=== PATIENT | female | born 1975 ===

== ENCOUNTER 2017-05-02 08:40 | Inpatient (IN) | payer MEDICAID ==
[2017-05-02 08:41] VITALS: BMI 37.8
--- NOTE | 2017-05-02 08:50 | ED PDOC ---
Arrival/HPI - General Time Seen by Provider: 05/02/17 08:41 Historian: Patient - History of Present Illness Narrative History of Present Illness (Text): 05/02/17 08:42 A 42 year old female, whose past medical history includes schizophrenia, arrives to the emergency department for psych admission. Patient was transferred from [facility] for psych admission prior to arriving. Patient denies of any complaints at this time. Time/Duration: Prior to Arrival Symptom Course: Unchanged Activities at Onset: Rest, Light Context: Other (transferred from [facility]) Past Medical History - Provider Review Nursing Documentation Reviewed: Yes - Infectious Disease Hx of Infectious Diseases: None - Tetanus Immunization Tetanus Immunization: Unknown - Cardiac Hx Cardiac Disorders: No Hx Angina: No Hx Cardiac Arrhythmia: No Hx Circulatory Problems: No Hx Congestive Heart Failure: No Hx Heart Murmur: No Hx Heart Transplant: No Hx Hypertension: Yes Hx Internal Defibrillator: No Hx Mitral Valve Prolapse: No Hx Pacemaker: No - Pulmonary Hx Respiratory Disorders: No - Neurological Hx Neurological Disorder: No - HEENT Hx HEENT Disorder: No - Renal Hx Renal Disorder: No - Endocrine/Metabolic Hx Endocrine Disorders: No - Hematological/Oncological Hx Blood Disorders: No - Integumentary Hx Dermatological Disorder: No - Musculoskeletal/Rheumatological Hx Musculoskeletal Disorders: No Hx Falls: No - Gastrointestinal Hx Gastrointestinal Disorders: No - Genitourinary/Gynecological Hx Genitourinary Disorders: No Hx Reproductive Disorders: No - Psychiatric Hx Psychophysiologic Disorder: No Hx Substance Use: No - Past Surgical History Past Surgical History: Non-Contributing - Surgical History Hx Cardiac Catheterization: No Hx Coronary Stent: No - Suicidal Assessment Feels Threatened In Home Enviroment: No Family/Social History - Physician Review Nursing Documentation Reviewed: Yes Family/Social History: No Known Family HX Smoking Status: Never Smoked Hx Alcohol Use: No Hx Substance Use: No Hx Substance Use Treatment: No Allergies/Home Meds Allergies/Adverse Reactions: Allergies aripiprazole [From Abilify] Allergy (Verified 05/02/17 08:52) ANAPHYLAXIS clozapine [From Clozaril] Allergy (Verified 05/02/17 08:52) ANAPHYLAXIS quetiapine [From Seroquel] Allergy (Verified 05/02/17 08:45) ANAPHYLAXIS Penicillins Adverse Reaction (Verified 08/17/16 13:35) FEVER Home Medications: Home Meds Medication Instructions Recorded Confirmed Benztropine [Benztropine Mesylate] 1 mg PO BID 08/17/16 08/17/16 Haloperidol [Haldol] 5 mg PO BID 08/17/16 08/17/16 OLANZapine [ZyPREXA] 10 mg PO HS 08/17/16 08/17/16 Olanzapine [Zyprexa] 5 mg PO DAILY 08/17/16 08/17/16 amLODIPine [Norvasc] 5 mg PO DAILY 08/17/16 08/17/16 traZODone [trazODONE HYDROCHLORIDE] 50 mg PO HS 08/17/16 08/17/16 Review of Systems - Physician Review All systems were reviewed & negative as marked: Yes - Review of Systems Constitutional: Normal Psychiatric: absent: Suicidal Ideation, Other (homicidal ideation) Physical Exam Vital Signs Reviewed: Yes Vital Signs Temp Pulse Resp BP Pulse Ox 05/02/17 08:44 98.8 F 96 H 18 147/79 95 Temperature: Afebrile Blood Pressure: Normal Pulse: Regular Respiratory Rate: Normal Appearance: Positive for: Well-Appearing Pain Distress: None Mental Status: Positive for: Alert and Oriented X 3 - Systems Exam Head: Present: Atraumatic, Normocephalic Pupils: Present: PERRL Extroacular Muscles: Present: EOMI Conjunctiva: Present: Normal Mouth: Present: Moist Mucous Membranes Neck: Present: Normal Range of Motion Respiratory/Chest: Present: Clear to Auscultation, Good Air Exchange. No: Respiratory Distress, Accessory Muscle Use Cardiovascular: Present: Regular Rate and Rhythm, Normal S1, S2. No: Murmurs Abdomen: Present: Normal Bowel Sounds. No: Tenderness, Distention, Peritoneal Signs Back: Present: Normal Inspection Upper Extremity: Present: Normal Inspection. No: Cyanosis, Edema Lower Extremity: Present: Normal Inspection. No: Edema Neurological: Present: GCS=15, CN II-XII Intact, Speech Normal Skin: Present: Warm, Dry, Normal Color. No: Rashes Psychiatric: Present: Alert, Oriented x 3, Normal Insight, Normal Concentration Medical Decision Making ED Course and Treatment: 05/02/17 08:47 Impression: 42 year old female arrives to emergency department for psych admission. Physical exam is benign Plan: -- Reassess and disposition Prior Visits: Notes and results from previous visits were reviewed. 08/16/2016 for psych admission. Patient was admitted. Progress Notes: 05/02/17 11:15 pt medically cleared and accepted prior to arrival. at bedside. pt denies complaints - Scribe Statement The provider has reviewed the documentation as recorded by the Charles Moise Provider Scribe Attestation: All medical record entries made by the Scribe were at my direction and personally dictated by me. I have reviewed the chart and agree that the record accurately reflects my personal performance of the history, physical exam, medical decision making, and the department course for this patient. I have also personally directed, reviewed, and agree with the discharge instructions and disposition. Disposition/Present on Arrival - Present on Arrival Any Indicators Present on Arrival: No History of DVT/PE: No History of Uncontrolled Diabetes: No Urinary Catheter: No History Surgical Site Infection Following: None - Disposition Have Diagnosis and Disposition been Completed?: Yes Diagnosis: Schizophrenia Disposition: HOSPITALIZED Disposition Time: 08:30 Patient Problems: Current Active Problems Problem Status Onset Development disorder, mixed Chronic Schizophrenia Chronic Condition: STABLE
--- NOTE | 2017-05-02 10:28 | PCM.BM ---
- Diagnosis (1) Schizophrenia Status: Chronic Interventions: 05/02/17 10:30 * Assess/adjust medications daily and /or as needed * See patient on an individual basis 7x/week to assess status of hallucinations * Discuss risks, benefits, side effects and alternatives of medications * (2) Development disorder, mixed Status: Chronic Interventions: -Close Monitoring -Group Therapy 05/02/17 10:35
[2017-05-02] MEDS ORDERED: Alum-Mag Hydrox-Simethicone Susp (30 mL) PO PRN (12:14)
[2017-05-02] MEDS ORDERED: Magnesium Hydroxide Susp 30 ml UD PO PRN (12:15)
--- NOTE | 2017-05-02 14:01 | CP.PCM.CON ---
<DARA LUCEOR - Last Filed: 05/02/17 13:57> History of Present Illness - History of Present Illness History of Present Illness: CC: Hallucinations, hypertension 42 year old female with a known history of HTN, schizophrenia, and mild developmental delay, who was transferred to [facility] from [facility] for psychiatric admission and evaluation. Patient reports 3 day history of auditory and visual hallucinations, which she experiences frequently. Patient reports suicidal and homicidal ideation, but denies having a plan. Patient currently reports mild right lower back pain which is a chronic problem for her. She also states that she occasionally gets migraine headaches, though she does not complain of a headache currently. She has been managing her pain from both conditions at home with Motrin, which she has been taking every day for the past few months. Denies chest pain, dyspnea, nausea, vomiting, bowel movement changes, lightheadedness, weakness of the extremities. PMHX: HTN, migraines, back pain. Denies DM, asthma, cancer. PSHX: Denies Psych history: Schizophrenia, developmental delay, (+) previous hospital evaluations, per prior records Medications: Norvasc, Depakote, Klonopin, Zyprexa, Motrin PRN (takes daily for past few months) Allergies: Aripiprazole, Clozapine, Quetiapine, PCNs Family history: Denies Social history: - denies smoking - denies EtOH - denies recreational drugs - drinks coffee daily - not employed - lives alone in an apartment in [place], [place]. States mother lives nearby. Review of Systems - Review of Systems All systems: reviewed and no additional remarkable complaints except (12 point ROS negative other than what is stated in HPI) Past Patient History - Infectious Disease Hx of Infectious Diseases: None - Tetanus Immunizations Tetanus Immunization: Unknown - Past Medical History & Family History Past Medical History?: Yes - Past Social History Smoking Status: Never Smoked - CARDIAC Hx Cardiac Disorders: No Hx Angina: No Hx Cardia Arrhythmia: No Hx Circulatory Problems: No Hx Congestive Heart Failure: No Hx Heart Murmur: No Hx Heart Transplant: No Hx Hypertension: Yes Hx Internal Defibrillator: No Hx Mitral Valve Prolapse: No Hx Pacemaker: No - PULMONARY Hx Respiratory Disorders: No - NEUROLOGICAL Hx Neurological Disorder: No - HEENT Hx HEENT Problems: No - RENAL Hx Chronic Kidney Disease: No - ENDOCRINE/METABOLIC Hx Endocrine Disorders: No - HEMATOLOGICAL/ONCOLOGICAL Hx Blood Disorders: No - INTEGUMENTARY Hx Dermatological Problems: No - MUSCULOSKELETAL/RHEUMATOLOGICAL Hx Musculoskeletal Disorders: No Hx Falls: No - GASTROINTESTINAL Hx Gastrointestinal Disorders: No - GENITOURINARY/GYNECOLOGICAL Hx Genitourinary Disorders: No Hx Reproductive Disorders: No - PSYCHIATRIC Hx Psychophysiologic Disorder: No Hx Substance Use: No - SURGICAL HISTORY Hx Cardiac Catheterization: No Hx Coronary Stent: No Meds Allergies/Adverse Reactions: Allergies Allergy/AdvReac Type Severity Reaction Status Date / Time aripiprazole [From Abilify] Allergy ANAPHYLAXIS Verified 05/02/17 08:52 clozapine [From Clozaril] Allergy ANAPHYLAXIS Verified 05/02/17 08:52 quetiapine [From Seroquel] Allergy ANAPHYLAXIS Verified 05/02/17 08:45 Penicillins AdvReac FEVER Verified 08/17/16 13:35 - Medications Medications: Current Medications Acetaminophen (Tylenol 325mg Tab) 650 mg PO Q6H PRN PRN Reason: Pain, moderate (4-7) Al Hydrox/Mg Hydrox/Simethicone (Maalox Plus 30 Ml) 30 ml PO DAILY PRN PRN Reason: Indigestion / Heartburn Clonazepam (Klonopin) 1 mg PO BID SHAHRAM PRN Reason: Protocol Last Admin: 05/02/17 13:11 Dose: 1 mg Divalproex Sodium (Depakote Dr(*Bid*)) 500 mg PO BID SHAHRAM PRN Reason: Protocol Haloperidol (Haldol) 5 mg PO BID SHAHRAM PRN Reason: Protocol Last Admin: 05/02/17 13:11 Dose: 5 mg Lorazepam (Ativan) 1 mg PO Q4 PRN; Protocol PRN Reason: Agitation Magnesium Hydroxide (Milk Of Magnesia) 30 ml PO DAILY PRN PRN Reason: Constipation Physical Exam - Constitutional Appears: No Acute Distress - Head Exam Head Exam: ATRAUMATIC, NORMOCEPHALIC - Eye Exam Eye Exam: EOMI, PERRL - ENT Exam ENT Exam: Mucous Membranes Moist - Neck Exam Neck exam: Positive for: Full Rom. Negative for: Lymphadenopathy, Tenderness, Thyromegaly - Respiratory Exam Respiratory Exam: Clear to Auscultation Bilateral. absent: Rales, Rhonchi, Wheezes - Cardiovascular Exam Cardiovascular Exam: RRR. absent: Gallop, Rubs, Systolic Murmur - GI/Abdominal Exam GI & Abdominal Exam: Soft. absent: Distended, Guarding, Rebound, Rigid, Tenderness - Extremities Exam Extremities exam: Positive for: pedal edema - Back Exam Back exam: paraspinal tenderness - Neurological Exam Neurological exam: Alert, CN II-XII Intact, Oriented x3 - Psychiatric Exam Psychiatric exam: Flat Affect, Homicidal Ideation, Suicidal Ideation - Skin Skin Exam: Dry, Intact, Normal Color, Warm Results - Vital Signs Recent Vital Signs: Last Vital Signs Temp 98.8 F 05/02/17 08:44 Pulse 96 H 05/02/17 08:44 Resp 18 05/02/17 08:44 BP 147/79 05/02/17 08:44 Pulse Ox 95 05/02/17 08:44 Assessment & Plan - Assessment and Plan (Free Text) Assessment: 42 yo F with PMHx of schizophrenia and HTN admitted for evaluation and treatment of suicidal and homicidal ideation. Plan: 1. Schizophrenia - Evaluation and treatment per psych - Urine tox negative - Alcohol level negative 2. HTN - Continue home medication - Norvasc 10 mg 3. Anemia - Hgb 10 at [facility] - Monitor and trend, will work-up if Hgb does not normalize 4. Leukocytosis - WBC 13.3 at [facility] - Monitor and trend, will work-up if WBC does not normalize 5. Back pain - Discussed risks of chronic NSAID use - Pain control as necessary Pt was seen and discussed in detail with Dr. Hebert. <José Antonio Hebert - Last Filed: 05/02/17 14:44> Meds - Medications Medications: Current Medications Acetaminophen (Tylenol 325mg Tab) 650 mg PO Q6H PRN PRN Reason: Pain, moderate (4-7) Al Hydrox/Mg Hydrox/Simethicone (Maalox Plus 30 Ml) 30 ml PO DAILY PRN PRN Reason: Indigestion / Heartburn Clonazepam (Klonopin) 1 mg PO BID SHAHRAM PRN Reason: Protocol Last Admin: 05/02/17 13:11 Dose: 1 mg Divalproex Sodium (Depakote Dr(*Bid*)) 500 mg PO BID SHAHRAM PRN Reason: Protocol Haloperidol (Haldol) 5 mg PO BID SHAHRAM PRN Reason: Protocol Last Admin: 05/02/17 13:11 Dose: 5 mg Lorazepam (Ativan) 1 mg PO Q4 PRN; Protocol PRN Reason: Agitation Magnesium Hydroxide (Milk Of Magnesia) 30 ml PO DAILY PRN PRN Reason: Constipation Results - Vital Signs Recent Vital Signs: Last Vital Signs Temp 98.8 F 05/02/17 08:44 Pulse 96 H 05/02/17 08:44 Resp 18 05/02/17 08:44 BP 147/79 05/02/17 08:44 Pulse Ox 95 05/02/17 08:44 Attending/Attestation - Attestation I have personally seen and examined this patient.: Yes I have fully participated in the care of the patient.: Yes I have reviewed all pertinent clinical information: Yes Notes (Text): 05/02/17 14:40 attending note; patient seen and examined with the resident in Psych floor. Patient is a 42 year old female with a known history of HTN, schizophrenia, and mild developmental delay, obesity who was transferred to [facility] from [facility] for psychiatric admission and evaluation. patient is currently resting. Denies any complaints. Denies any fevers, chills. Denies any cough. Denies any urinary symptoms. denies any diarrhea. Labs reviewed from [facility]. Mild leukocytosis and anemia noted. Mildly elevated blood sugar. Urine drug screen negative. UA negative. Chest x-rays negative. Repeat labs. Patient is clinically stable. Please reconsult as needed. Thank you for the courtesy of this consultation.
[2017-05-02] MEDS ORDERED: Divalproex 500 mg DR(BID formulation) PO SCH (16:00)
--- NOTE | 2017-05-02 16:49 | PCM.BM ---
<Christine Escalera - Last Filed: 05/02/17 16:46> Treatment Plan Problems - Problems identified on initial assessmt auditory Date Initiated: 05/02/17 Time Initiated: 16:46 Assessment reference: NA Status: Active Priority: 1 visual hallucination Date Initiated: 05/02/17 Time Initiated: 16:47 Assessment reference: NA Status: Active altered thought process Date Initiated: 05/02/17 Time Initiated: 16:50 Assessment reference: NA Status: Active Priority: 1 Treatment assets and liabiliti Patient Assests: ADL independent, negotiates basic needs Patient Liabilities: relationship conflicts, auditory impairment - Milieu Protocol Maintain good personal hygiene: daily Encourage regular showers, daily Assist patient to perform ADL's, every shift Remind patient to perform daily oral care Conduct patient checks and document Observation sheet: Q15 minutes Maintain personal safety: every shift Educate patient to report safety concerns to staff, every shift Monitor environment for contraband/sharps Medication safety: Monitor for expected outcome, potential side effects: every shift, Assess barriers to learning: every shift, Assess readiness for medication education: every shift Discharge/Continuing Care - Education Needs Education Needs: Patient Medication, Patient Diagnosis/Disease Process, Patient Coping Skills, Patient Community resources, Patient Personal Hygiene/Grooming - Discharge Discharge Criteria: Tolerates medication w/o severe side effects, Free of paranoid thoughts, Free of agitation <Kajal Garcia - Last Filed: 05/03/17 08:59> Family Contact - Outside Agency [facility] involvment: Following patient during stay Agency contact number: [phone] - Goals for Treatment Patient goals for treatment: "I want a new apartment!"
[2017-05-02] MEDS: Divalproex 500 mg DR(BID formulation) PO SCH (21:12)
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
[2017-05-03 07:42] LABS: ADD MANUAL DIFF? NO; BASO # 0.05 K/mm3 (0.0-2.0); BASO % 0.4 % (0.0-3.0); EOS # 0.2 (0.0-0.7); EOS % 1.6 % (1.5-5.0); GRAN % 57.3 % (50.0-68.0); HEMATOCRIT 32.8 % (36.0-48.0); LYMPH # 4.2 (1.2-3.4); LYMPH % 32.4 % (22.0-35.0); MEAN CELL VOLUME 82.2 fl (80.0-105.0); MEAN CORPUSCULAR HEMOGLOBIN 25.1 pg (25.0-35.0); MEAN CORPUSCULAR HGB CONC 30.5 g/dl (31.0-37.0); MEAN PLATELET VOLUME 10.3 fl (7.0-11.0); MONO # 1.1 (0.1-0.6); MONO % 8.3 % (1.0-6.0); PLATELET COUNT 399 10^3/uL (120.0-450.0); RED CELL DISTRIBUTION WIDTH 15.3 % (11.5-14.5); WHITE BLOOD COUNT 13.1 10^3/ul (4.5-11.0)
[2017-05-03 07:57] LABS: ALB/GLOB RATIO 1.1 (1.1-1.8); ALKALINE PHOSPHATASE 63 U/L (38-133); ALT/SGPT 26 U/L (7-56); AST/SGOT 17 U/L (15-39); BILIRUBIN,TOTAL 0.2 mg/dL (0.2-1.3); BLOOD UREA NITROGEN 12 mg/dL (7-21); CALCIUM 8.9 mg/dL (8.4-10.5); CARBON DIOXIDE 30 mmol/L (21-33); CHLORIDE 101 mmol/L (98-107); CHOLESTEROL 175 mg/dL (130-200); GFR AFRICAN-AMERICAN > 60; GLUCOSE,FASTING 79 mg/dL (65-110); GLUCOSE,RANDOM 79 mg/dL (70-110); SODIUM 141 mmol/L (132-148); TOTAL PROTEIN 6.7 g/dL (5.8-8.3)
[2017-05-03 08:13] LABS: FREE T4 1.32 ng/dL (0.78-2.19)
[2017-05-03 08:27] LABS: THYROID STIMULATING HORMONE 0.79 mIU/mL (0.46-4.68)
[2017-05-03] MEDS: Divalproex 500 mg DR(BID formulation) PO SCH ×2 (09:07→21:08)
--- NOTE | 2017-05-03 09:34 | CARD ---
APPROVED REPORT EKG Measurement Heart [id number] <Conclusion> Normal sinus rhythm Possible Left atrial enlargement Borderline ECG
--- NOTE | 2017-05-03 17:55 | PN ---
SUBJECTIVE: The patient's mood and affect appear to be improved. She is less agitated than yesterday, although she is perseverative and has poor boundary definition. She indicated that she hears voices telling her to hurt others, but this appears to be significantly diminished in frequency and intensity. Nursing reports that the patient still is emotionally labile with a constricted affect and reports having both auditory and auditory command hallucinations. She denies however any suicidality or homicidality. She does appear to be paranoid at times and feels that people are talking about her. She is being maintained psychotropically on Depakote 500 mg a.m. and at bedtime, Haldol 5 mg b.i.d., Klonopin 1 mg b.i.d. Elias Parker MD/ PhD
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
[2017-05-04] MEDS: Divalproex 500 mg DR(BID formulation) PO SCH ×2 (11:01→21:06)
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
--- NOTE | 2017-05-05 09:17 | RAD ---
HISTORY: psych admission routine COMPARISON: 03/25/2014 TECHNIQUE: Chest PA and lateral FINDINGS: LUNGS: No active pulmonary disease. PLEURA: No significant pleural effusion identified. No pneumothorax apparent. CARDIOVASCULAR: Normal. OSSEOUS STRUCTURES: No significant abnormalities. VISUALIZED UPPER ABDOMEN: Normal. OTHER FINDINGS: None. IMPRESSION: No active disease.
[2017-05-05] MEDS: Divalproex 500 mg DR(BID formulation) PO SCH ×2 (10:30→21:36)
[2017-05-06] MEDS: Divalproex 500 mg DR(BID formulation) PO SCH ×2 (09:11→21:34)
--- NOTE | 2017-05-06 17:51 | PCM.PYCHPN ---
Psychiatric Progress Note - Psychiatric Progress Note Patient seen today, length of contact: 25 min Patient Chief Complaint: Agitation and depression Problems Identified/Issues Discussed: Has had auditory hallucinations has had mood lability. Medical Problems: Hypertension Diagnostic Results: Blood pressure 131/85 pulse 95 temperature 98.2 respiratory rate 20 DSM 5 Symptoms Update: Mood and affect improving. Patient to less agitated. Not complaining of auditory hallucinations. Medication Change: No Medical Record Reviewed: Yes Consults ordered or reviewed: Notes of weekend reviewed Mental Status Examination - Cognitive Function Orientation: Person, Place, Situation Attention: WNL Concentration: Poor Association: Loose Fund of Knowledge: Poor - Mood Mood: Other ("mood is better") - Affect Affect: Flat - Speech Speech: Appropriate - Suicidal Ideation Suicidal Ideation: No - Homicidal Ideation Homicidal Ideation: No Goal/Treatment Plan - Goal/Treatment Plan Progress Toward Problem(s) and Goals/Treatment Plan: Patient showing significant improvement in mood affect and cognition. If this improves patient will be ready for discharge tomorrow
[2017-05-07 07:02] VITALS: BP 132/74; PULSE 86; RESP 18; TEMP 98.7; O2SAT 95
[2017-05-07] MEDS: Divalproex 500 mg DR(BID formulation) PO SCH (09:00)
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
== END 2017-05-07 17:14 | disposition home or self-care (01) | DRG 430 ==
LOC: ED 08:40 → ERH 08:43 → PSYC 09:25
PROVIDERS: ADMIT Psychiatry & Neurology Addiction Medicine; ATTEND Psychiatry & Neurology Addiction Medicine
PROC: GZ3ZZZZ Medication Management (ICD-10-PCS; principal; 2017-05-02)
DX: F20.0 Paranoid schizophrenia (principal); F79 Unspecified intellectual disabilities; I10 Essential (primary) hypertension; G43.909 Migraine, unspecified, not intractable, without status migrainosus; D64.9 Anemia, unspecified; G89.29 Other chronic pain; M54.5 Low back pain; D72.829 Elevated white blood cell count, unspecified; E66.9 Obesity, unspecified; Z68.39 Body mass index [BMI] 39.0-39.9, adult